=== PATIENT | female | born 1985 | race Caucasian/White ===

== ENCOUNTER 2019-06-29 15:55 | Emergency (ER) | payer SELFPAY ==
[~2019-06-29] VITALS: Ht 162.6 cm; Wt 91.5 kg
[2019-06-29 16:05] VITALS: BP 134/78
--- NOTE | 2019-06-29 16:49 | PHYS DOC ---
Past History Past Medical History: Bipolar, Depression, Seizure Past Surgical History: Tonsillectomy, Tubal ligation Alcohol Use: None Adult General Chief Complaint Chief Complaint: EARACHE/EAR PAIN HPI HPI 34-year-old female presents with left ear pain. The patient has had pain for last 2 days. She has a history of ear infections every year as an adult. She states that it is worse when she eats. Opening closing mouth is painful. The patient does occasionally have a popping sensation when she opens and closes her mouth. She feels like sometimes when she chews her teeth go in a [place] rather than just up-and-down. She denies fever or chills. Seeing the dentist next week. Review of Systems Review of Systems Constitutional: Denies fever or chills [] Eyes: Denies change in visual acuity, redness, or eye pain [] HENT: Ear pain, left TMJ pain[] Respiratory: Denies cough or shortness of breath [] Cardiovascular: No additional information not addressed in HPI [] GI: Denies abdominal pain, nausea, vomiting, bloody stools or diarrhea [] : Denies dysuria or hematuria [] Musculoskeletal: Denies back pain or joint pain [] Integument: Denies rash or skin lesions [] Neurologic: Denies headache, focal weakness or sensory changes [] Endocrine: Denies polyuria or polydipsia [] All other systems were reviewed and found to be within normal limits, except as documented in this note. Allergies Allergies Allergies Coded Allergies Type Severity Reaction Last Updated Verified diphenhydramine Allergy Unknown 06/29/19 Yes Physical Exam Physical Exam Constitutional: Well developed, well nourished, no acute distress, non-toxic appearance. [] HENT: Normocephalic, atraumatic, bilateral external ears normal, oropharynx moist, no oral exudates, nose normal. Bilateral tympanic membranes normal. Tenderness over the left TMJ with palpation and no pain closing of the mouth[] Eyes: PERRLA, EOMI, conjunctiva normal, no discharge. [] Neck: Normal range of motion, no tenderness, supple, no stridor. [] Cardiovascular: Heart rate regular rhythm, no murmur [] Lungs & Thorax: Bilateral breath sounds clear to auscultation [] Abdomen: Bowel sounds normal, soft, no tenderness, no masses, no pulsatile masses. [] Skin: Warm, dry, no erythema, no rash. [] Back: No tenderness, no CVA tenderness. [] Extremities: No tenderness, no cyanosis, no clubbing, ROM intact, no edema. [] Neurologic: Alert and oriented X 3, normal motor function, normal sensory function, no focal deficits noted. [] Psychologic: Affect normal, judgement normal, mood normal. [] Current Patient Data Vital Signs Vital Signs Date Time Temp Pulse Resp B/P (MAP) Pulse Ox O2 Delivery O2 Flow Rate FiO2 06/29/19 16:05 98.5 86 20 134/78 (96) 97 Room Air EKG EKG [] Radiology/Procedures Radiology/Procedures [] Course & Med Decision Making Course & Med Decision Making Pertinent Labs and Imaging studies reviewed. (See chart for details) Patient's ears appear normal. I believe this pain is related to her TMJ. I recommended she keep her dental appointment and discuss with her tetanus. She will also use NSAIDs to decrease swelling and add Tylenol for pain if needed. She states verbal understanding. She is stable for discharge at this time. [] Dragon Disclaimer Dragon Disclaimer This electronic medical record was generated, in whole or in part, using a voice recognition dictation system. Departure Departure: Impression: Primary Impression: Left temporomandibular joint disorder, unspecified Disposition: 01 HOME, SELF-CARE Condition: STABLE Referrals: PCPKRYSTA (PCP) Patient Instructions: Temporomandibular Joint Pain-Brief JEFERSON HOLLIS DO Jun 29, 2019 16:49
== END 2019-06-29 16:57 | disposition home or self-care (01) ==
LOC: ER 15:55
DX: M26.602 Left temporomandibular joint disorder, unspecified (principal); Z88.8 Allergy status to other drugs, medicaments and biological substances
CPT/HCPCS: 99281